=== PATIENT | female | born 1970 | race Asian ===

== ENCOUNTER 2021-01-16 17:19 | Emergency (ER) | payer MEDICAID ==
[~2021-01-16] VITALS: Ht 162.6 cm; Wt 60.4 kg
[2021-01-16] MEDS ORDERED: DIAZ-63 PO (19:13)
[2021-01-16 19:19] VITALS: BP 146/78
== END 2021-01-16 19:21 | disposition home or self-care (01) ==
LOC: ER 17:21
DX: G44.209 Tension-type headache, unspecified, not intractable (principal); Z79.899 Other long term (current) drug therapy; V89.2XXA Person injured in unspecified motor-vehicle accident, traffic, initial encounter; Y93.89 Activity, other specified; Y92.89 Other specified places as the place of occurrence of the external cause; Y99.8 Other external cause status
CPT/HCPCS: 99283